=== PATIENT | male | born 1965 | race African-American/Black ===

== ENCOUNTER 2024-04-29 12:58 | Inpatient (IN) | payer BC ==
[2024-04-29 13:41] VITALS: BMI 28.8
[2024-04-29] MEDS ORDERED: IBUPROFEN 400 MG TABLET (FP) PO PRN (14:36)
[2024-04-29] MEDS ORDERED: guaiFENesin 600 MG TABLET.ER (FP) PO PRN (14:36)
[2024-04-29] MEDS ORDERED: MAG HYDROX/AL HYDROX/SIMETH 30 ML UNIT-DOSE CUP PO PRN (14:36)
[2024-04-29] MEDS ORDERED: DICYCLOMINE HCL 10 MG CAPSULE PO PRN (14:36)
[2024-04-29] MEDS ORDERED: BENZONATATE 200 MG CAPSULE PO PRN (14:36)
[2024-04-29] MEDS ORDERED: NALOXONE (NARCAN) HCL 4 MG/0.1 ML SPRAY NS PRN (14:36)
[2024-04-29] MEDS ORDERED: ONDANSETRON *ODT* 4 MG TABLET SL PRN (14:36)
[2024-04-29] MEDS ORDERED: POLYETHYLENE GLYCOL (HEALTHYLAX) 3350 17 GM PACKET PO PRN (14:36)
[2024-04-29] MEDS ORDERED: BENZOCAINE/MENTHOL (CHLORASEPTIC ) LOZENGE MM PRN (14:36)
[2024-04-29] MEDS ORDERED: MAGNESIUM HYDROX 2400MG/30ML ORAL SUSPENSION 30 ML CUP PO PRN (14:36)
[2024-04-29] MEDS ORDERED: BISMUTH SUBSALICYLATE 524 MG/30 ML PO PRN (14:36)
[2024-04-29] MEDS ORDERED: NALOXONE (NYS OPIOID OVERDOSE PROGRAM) 4 MG/0.1 ML SPRAY NS PRN (14:36)
[2024-04-29] MEDS ORDERED: hydrOXYzine PAMOATE 25 MG CAPSULE (FP) PO PRN (14:36)
[2024-04-29] MEDS ORDERED: LOPERAMIDE HCL 2 MG CAPSULE PO PRN (14:36)
[2024-04-29] MEDS: PRENATAL VITAMINS W/ FOLIC ACID TABLET (FP) PO SCH (15:03)
[2024-04-29] MEDS: IBUPROFEN 600 MG TABLET (FP) PO PRN (18:05)
[2024-04-29] MEDS: NICOTINE 14 MG/24 HOURS TOPICAL PATCH TD SCH (18:07)
[2024-04-29] MEDS: MELATONIN 5 MG TABLETS PO SCH (23:50)
[2024-04-29] MEDS: THIAMINE 100 MG TABLET PO SCH (23:51)
[2024-04-29] MEDS: METHOCARBAMOL 500 MG TABLET PO PRN (23:56)
[2024-04-30] MEDS: ACETAMINOPHEN 325 MG TABLET (FP) PO PRN (05:19)
[2024-04-30] MEDS: BICTEGRAV/EMTRICIT/TENOFOV (BIKTARVY) 50-200-25 MG TABLET PO SCH (07:10)
[2024-04-30] MEDS: DOXYCYCLINE HYCLATE 100 MG CAPSULE PO SCH (10:04)
[2024-04-30 12:23] LABS: HEMATOCRIT 38.1 % (35.4-49); HEMOGLOBIN 12.2 GM/dL (11.7-16.9); MCH 26.4 pg (25.7-33.7); MEAN CELL VOLUME 82.5 fl (80-96); MEAN PLT VOLUME 8.4 fl (7.5-11.1); PLATELET COUNT 205 10^3/uL (134-434); RBC 4.61 M/mm3 (4.00-5.60); RDW 13.3 % (11.9-15.9); WHITE BLOOD COUNT 10.4 K/mm3 (4.0-10.0)
[2024-04-30 12:33] LABS: CHLORIDE 108 mmol/L (98-107); POTASSIUM 3.6 mmol/L (3.5-5.1); SODIUM 139 mmol/L (136-145)
[2024-04-30 12:35] LABS: ALBUMIN 3.2 g/dl (3.4-5.0); ANION GAP 6 mmol/L (4-13); CALCIUM 8.5 mg/dL (8.5-10.1); CO2 24 mmol/L (21-32)
[2024-04-30 12:36] LABS: GLUCOSE,RANDOM 120 mg/dL (74-106)
[2024-04-30 12:38] LABS: SGPT/ALT 14 U/L (13-61)
[2024-04-30 12:39] LABS: CREATININE 0.9 mg/dL (0.55-1.3); SGOT/AST 20 U/L (15-37)
[2024-04-30 12:40] LABS: BILIRUBIN,TOTAL 1.1 mg/dL (0.2-1); TOT PROT 6.8 g/dl (6.4-8.2)
[2024-04-30 12:41] LABS: ALK PHOS 74 U/L (45-117)
[2024-04-30] MEDS: SUVOREXANT 10 MG TABLET PO PRN (21:55)
[2024-05-01] MEDS: DOXYCYCLINE HYCLATE 100 MG TABLET PO SCH (09:40)
[2024-05-01 09:47] VITALS: BP 155/70; PULSE 80; RESP 19; TEMP 96.8
== END 2024-05-01 09:41 | disposition home or self-care (01) | DRG 774 ==
LOC: YASAS 12:58 → Y3N 14:44
PROVIDERS: ADMIT Allergy & Immunology; ATTEND Surgery
PROC: HZ2ZZZZ Detoxification Services for Substance Abuse Treatment (ICD-10-PCS; principal; 2024-04-29)
DX: F10.20 Alcohol dependence, uncomplicated (principal); F14.20 Cocaine dependence, uncomplicated; F17.210 Nicotine dependence, cigarettes, uncomplicated; F19.282 Other psychoactive substance dependence with psychoactive substance-induced sleep disorder; Z21 Asymptomatic human immunodeficiency virus [HIV] infection status; I10 Essential (primary) hypertension; N45.1 Epididymitis; Z79.899 Other long term (current) drug therapy
CPT/HCPCS: 36415; 80053; 80305; 80307; 85027; 86593; 86780; 93005; 93010

== ENCOUNTER 2024-04-29 19:06 | Emergency (ER) | payer BC ==
[2024-04-29 20:09] VITALS: BP 147/76; PULSE 73; RESP 20; TEMP 97.9; BMI 29.0
[2024-04-29 21:16] LABS: EPI CELLS 5 /uL (0-25.1); HYALINE CASTS 1 /uL (0-3.1); PH,URINE 5.5 (5.0-8.0); URINE APPEARANCE CLEAR; URINE BACTERIA 24 /uL (0-1359); URINE BILIRUBIN 1+ (NEGATIVE); URINE COLOR DK YELLOW; URINE GLUCOSE (UA) NEGATIVE (NEGATIVE); URINE KETONE TRACE (NEGATIVE); URINE LEUK ESTERASE TRACE (NEGATIVE); URINE NITRITE NEGATIVE (NEGATIVE); URINE PROTEIN 1+ (NEGATIVE); URINE RBC 27 /uL (0-23.9); URINE UROBILINOGEN 4.0 E.U/dl mg/dL (0.2-1.0); URINE WBC 40 /uL (0-25.8)
[2024-04-29] MEDS ORDERED: DOXYCYCLINE HYCLATE 100 MG CAPSULE PO ONE (21:24)
[2024-04-29] MEDS ORDERED: cefTRIAXone SODIUM 1 GM VIAL ONE (21:24)
[2024-04-29] MEDS: DOXYCYCLINE HYCLATE 100 MG CAPSULE PO ONE (21:43)
== END 2024-04-29 22:56 | disposition home or self-care (01) ==
LOC: JER 19:06
DX: N45.1 Epididymitis (principal); R10.30 Lower abdominal pain, unspecified
CPT/HCPCS: 36415; 76870-TC; 81003; 87086; 87491; 87591; 93005; 93010; 99285-25